=== PATIENT | male | born 1970 | race Caucasian/White ===

== ENCOUNTER 2019-02-18 08:55 | Emergency (ER) | payer BC ==
--- NOTE | 2019-02-18 09:07 | EDPHY ---
H & P Stated Complaint: Hematuria Time Seen by Provider: 02/18/19 09:06 - Personal History Current Tetanus/Diphtheria Vaccine: Yes - Medical/Surgical History Hx Asthma: No Hx Chronic Respiratory Disease: No Hx Diabetes: No Hx Cardiac Disease: No Hx Renal Disease: No Hx Cirrhosis: No Hx Alcoholism: No Other PMH: Denies - Social History Smoking Status: Never smoked Constitutional: Initial Vital Signs Temperature (C) 36.9 C 02/18/19 08:59 Heart Rate 75 02/18/19 08:59 Respiratory Rate 16 02/18/19 08:59 Blood Pressure 154/95 H 02/18/19 08:59 O2 Sat (%) 93 02/18/19 08:59 O2 Delivery Mode Room Air Allergies/Adverse Reactions: No Known Allergies Allergy (Unverified 02/18/19 09:02) Home Medications: Medication Instructions Recorded NK [No Known Home Meds] 02/18/19 Medical Decision Making ED Course/Re-evaluation: CHIEF COMPLAINT: Bloody in urine HISTORY OF PRESENT ILLNESS: The patient is a 48 y/o male complaining of blood in his urine today. The patient was sitting on the toilet when he noticed gross blood in his urine. At that time he had no pain. He urinated while sitting down again and saw gross blood and had pain in his urethra just before his gland. He tried urinating while standing up and had no blood or pain. He denies recent injury or trauma. No fever, headache, body aches, lightheadedness, chest pain, heart palpitations , shortness of breath, cough, abdominal pain, bowel complaints, numbness, paresthesias. REVIEW OF SYSTEMS: A comprehensive 10 system review of systems is otherwise negative aside from elements mentioned in the history of present illness and medical decision making. PHYSICAL EXAM: HR, BP, O2 Sat, RR. Temp noted General Appearance: Alert, well hydrated, appropriate, and non-toxic appearing. Head: Atraumatic without scalp tenderness or obvious injury Eyes: Pupils equal, round, reactive to light and accommodation, EOMI, no trauma , no injection. Ears: Clear bilaterally, no perforation, normal landmarks Nose: Atraumatic, no rhinorrhea, clear. Throat: There is no erythema or exudates, no lesions, normal tonsils, mucus membranes moist. Neck: Supple, 2+ carotid upstroke, nontender, no lymphadenopathy. Respiratory: No retractions, no distress, no wheezes, and no accessory muscle use. Lungs are clear to auscultation bilaterally. Cardiovascular: Regular rate and rhythm, no murmurs, rubs, or gallops. Bilateral carotid, radial, dorsalis pedis, and posterior tibial pulses intact. Good capillary refill all extremities. Gastrointestinal: Abdomen is soft, nontender, non-distended, no masses, no rebound, no guarding, no peritoneal signs. Musculoskeletal: Normal active ROM of all extremities, atraumatic. Genitourinary: Normal exam. Neurological: Alert, appropriate, and interactive. The patient has normal DTRs and non-focal cranial nerves, motor, sensory, and cerebellar exam. Skin: No rashes, good turgor, no nodules on palpation. Past medical history: Denies Past surgical history: Denies Family history: Denies Social history: Lives in [place], , employed DIAGNOSTICS/PROCEDURES/CRITICAL CARE TIME: Not indicated. DIFFERENTIAL DIAGNOSIS: The differential diagnosis for the patient's hematuria included but was not limited to prostatitis, prostate polyp, gonorrhea, chlamydia, urinary tract infection. MEDICAL DECISION MAKING: The patient is a 48 y/o male presenting with blood in his urine today. The patient was sitting on the toilet when he noticed gross blood in his urine. He urinated while sitting down again and saw gross blood and had pain in his urethra just before his gland. These symptoms are not present while standing. He has a normal physical exam. I suspect he has prostatitis. UA ordered. 0935: Patient's UA reveals 2+ blood. He may have prostatitis or a prostate polyp. 0938: Reassessed patient and discussed UA findings. I have advised him to follow up with a urologist when he returns home to [place]. I have prescribed him Pyridium for his symptoms. Return precautions provided; patient is comfortable with this plan. - Data Points Laboratory Results: 02/18/19 09:15 Urine Color COLORLESS Urine Appearance CLEAR Urine pH 7.0 (5.0-7.5) Ur Specific [place] 1.002 (1.002-1.030) Urine Protein NEGATIVE (NEGATIVE) Urine Ketones NEGATIVE (NEGATIVE) Urine Blood 2+ H (NEGATIVE) Urine Nitrate NEGATIVE (NEGATIVE) Urine Bilirubin NEGATIVE (NEGATIVE) Urine Urobilinogen NEGATIVE EU EU (0.2-1.0) Ur Leukocyte Esterase NEGATIVE (NEGATIVE) Urine RBC 1-3 /hpf /hpf (0-3) Urine WBC 1-3 /hpf /hpf (0-3) Ur Epithelial Cells TRACE /lpf /lpf (NONE-1+) Urine Glucose NEGATIVE (NEGATIVE) Departure - Departure Disposition: Home, Routine, Self-Care Clinical Impression: Hematuria Qualifiers: Hematuria type: gross Qualified Code(s): R31.0 - Gross hematuria Condition: Good Instructions: Prostatitis (ED), Hematuria (ED) Additional Instructions: 1. Follow up with a urologist without fail. 2. Take Pyridium as prescribed. 2. Return to the Emergency Department for fever, worsening pain, flank pain or failure to improve within 72 hours. Referrals: SAFIA RAMIREZ [Other] - As per Instructions Report Scribed for: Brice Soriano Report Scribed by: Patricia Paz Date of Report: 02/18/19 Time of Report: 09:13
[2019-02-18 09:28] VITALS: BP 154/95
== END 2019-02-18 09:43 | disposition home or self-care (01) ==
DX: R31.0 Gross hematuria (principal)